=== PATIENT | male | born 1945 | race Caucasian/White ===

== ENCOUNTER 2017-04-07 08:12 | Inpatient (IN) | payer BC, OTHER ==
--- NOTE | 2017-03-30 11:01 | HP ---
DATE OF ADMISSION: 04/07/2017 DATE OF SURGERY: 04/07/2017 DATE OF DICTATION: 02/04/2017 REASON FOR ADMISSION: Large chronically incarcerated complex ventral incisional hernia. BRIEF HISTORY: This is a 71-year-old gentleman who in 2012 underwent a laparoscopic with conversion to an open sigmoid colectomy with an end-to-end anastomosis with a 29 EEA stapler. This was performed at [facility] by Dr. Richards. Following that operation, the patient developed a large incisional hernia. He was evaluated a year to a year and a half ago for this hernia regarding repair by Dr. Lucas, and it was thought not to repair it at that time. He now presents to my office with complains of having progressive pain, episodic pain, in the right lower quadrant of the abdomen where the hernia is. He has had no bouts of nausea or vomiting or change in bowel habits. PAST MEDICAL HISTORY: Patient has as mentioned above. He has a history of peptic ulcer disease, gallbladder disease, heart disease, coronary artery disease, hypertension, hypercholesterolemia, history of skin cancer. He has depression, anxiety disorder. He has difficulty with healing wounds. He has issues with scar formation. He has eye disease and arthritis. PAST SURGICAL HISTORY: As mentioned above. He has had an umbilical hernia repair in the past with mesh. ALLERGIES: None. MEDICATION: Patient takes chronic Percocet 2 pills a day, he takes Ramipril, clonazepam, Lovaza. SOCIAL HISTORY: He does not smoke, nor drink. PHYSICAL EXAMINATION: Lungs: Clear. Heart: Regular rhythm. Abdomen: Obese. 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 He has a large chronically incarcerated ventral hernia below the umbilicus extending to his pelvis and mostly offset to the patients right lower quadrant of the abdomen. The hernia is nontender on exam, but not reducible. He has defect noted at the level of the umbilicus as well. IMPRESSION/PLAN: Chronically incarcerated large incisional ventral hernia. Patient possibly could have loss of domain as well. This is a 71-year-old gentleman becoming more symptomatic from a large ventral incisional hernia. It is chronically incarcerated, and due to the size and nature of this hernia, I suspect he may have some loss of domain. At this point, we discussed the pros and cons of a repair, and clearly the repair of this would not be an easy task and it would require a component separation in an attempt for a retrorectus repair. He may require the component separation just to offload the tension for a repair of a hernia of this magnitude given his possible loss of domain. Patient will be scheduled for bilateral component separation, total abdominal reconstruction, and repair of a large chronically incarcerated ventral incisional hernia with mesh. The indications, alternatives, and complications of this procedure have been discussed at length with this gentleman. He understands and wants to proceed. KATTY DUMONT M.D. [id number] cc: Chase Shepard MD
[2017-04-05 15:31] VITALS: BMI 35.5
[2017-04-07] MEDS ORDERED: TAMSULOSIN HCL 0.4 MG CAP.ER.24H (FP) PO ONE (08:30)
[2017-04-07] MEDS ORDERED: ROPIVACAINE HCL 0.5% 30ML VIAL ONE (08:36)
[2017-04-07] MEDS ORDERED: DEXAMETHASONE SOD PHOSPHATE/PF 10 MG/ML SDV ONE (08:36)
[2017-04-07] MEDS ORDERED: MIDAZOLAM HCL 2 MG/2 ML SINGLE DOSE VIAL ONE ×3 (08:38→10:50)
[2017-04-07] MEDS ORDERED: ceFAZolin SODIUM 1 GM VIAL ONE ×2 (08:40→11:11)
[2017-04-07] MEDS ORDERED: TAMSULOSIN HCL 0.4 MG CAP.ER.24H (FP) ONE (08:40)
[2017-04-07] MEDS ORDERED: fentaNYL CITRATE 250 MCG/5 ML VIAL ONE (10:51)
[2017-04-07] MEDS ORDERED: ROCURONIUM BROMIDE 50 MG/5 ML VIAL ONE ×3 (10:53→12:10)
[2017-04-07] MEDS ORDERED: PROPOFOL 20 ML ONE (10:53)
[2017-04-07] MEDS ORDERED: ceFAZolin SODIUM 1 GM VIAL IVPB ONE (11:00)
[2017-04-07] MEDS ORDERED: ERTAPENEM SODIUM 1 GM VIAL ONE (11:36)
[2017-04-07] MEDS ORDERED: GLYCOPYRROLATE 0.2 MG/1 ML VIAL ONE ×2 (11:37→11:39)
[2017-04-07] MEDS ORDERED: ERTAPENEM SODIUM 1 GM VIAL IVPB ONE (11:38)
[2017-04-07] MEDS ORDERED: BUPIVACAINE HCL/PF 0.25% (2.5MG/ML) 10 ML VIAL ONE (13:07)
[2017-04-07] MEDS ORDERED: DEXAMETHASONE SOD PHOSPHATE 4 MG/1 ML VIAL ONE (13:07)
[2017-04-07] MEDS ORDERED: ONDANSETRON 4 MG/2 ML VIAL IVPUSH PRN ×2 (13:38→15:03)
--- NOTE | 2017-04-07 13:45 | OP ---
Operative Note - Note: Operative Date: 04/07/17 Pre-Operative Diagnosis: complex incisional hernia Operation: repair complex incisional hernia with mesh, utilizing component separation, extensive lysis of adhesions, Findings: densely adhesed small bowel to abd wall, large complex hernia Implants: see operative report Surgeon: Jimenez Carpenter [employer] Team Member: Jackson Blackmon Anesthesiologist/PANTRY ATTENDANT: Eli Velasco MD Specimens Removed: hernia sac Estimated Blood Loss (mls): 30 Drains & Tubes with Location: chrissie subcutaneous Operative Report Dictated: Yes
[2017-04-07] MEDS ORDERED: NEOSTIGMINE METHYLSULFATE 0.5 MG/ML - 10 ML MDV ONE (14:03)
[2017-04-07] MEDS ORDERED: LABETALOL HCL 5 MG/1 ML (100MG/20 ML VIAL) IVPUSH ONE (15:03)
[2017-04-07] MEDS: D5-1/2NS+20 MEQ KCL - 20 MEQ/1,000 ML INFUS.BAG IV SCH (17:10)
[2017-04-07] MEDS: morphine CARPU-JECT 10 MG/1 ML DISP.SYRIN IVPB PRN ×2 (18:30→22:02)
[2017-04-07] MEDS: TERAZOSIN HCL 5 MG CAPSULE PO SCH (22:02)
[2017-04-07] MEDS: RAMIPRIL 5 MG CAPSULE (FP) PO SCH (22:02)
[2017-04-08] MEDS: morphine CARPU-JECT 10 MG/1 ML DISP.SYRIN IVPB PRN ×5 (04:54→20:11)
[2017-04-08] MEDS: D5-1/2NS+20 MEQ KCL - 20 MEQ/1,000 ML INFUS.BAG IV SCH ×2 (06:19→20:15)
[2017-04-08 08:11] LABS: HEMATOCRIT 40.4 % (35.4-49); HEMOGLOBIN 13.2 GM/dL (11.7-16.9); MCH 29.6 pg (25.7-33.7); MCHC 32.6 g/dl (32.0-35.9); MEAN CELL VOLUME 90.9 fl (80-96); PLATELET COUNT 160 K/MM3 (134-434); RBC 4.45 M/mm3 (4.00-5.60); RDW 12.9 % (11.9-15.9); WHITE BLOOD COUNT 12.6 K/mm3 (4.0-10.0)
--- NOTE | 2017-04-08 08:52 | OP ---
DATE OF OPERATION: 04/07/2017 PREOPERATIVE DIAGNOSIS: Chronically incarcerated complex ventral incisional hernia. POSTOPERATIVE DIAGNOSIS: Chronically incarcerated complex ventral incisional hernia. PROCEDURE: Bilateral component separation, repair of complex chronically incarcerated ventral incisional hernia with mesh. SURGEON: Jimenez Dumont MD PROFESSOR OF APOLOGETICS: Clive Rees DO ANESTHESIA: General. Patient also was given a rectus sheath block during the procedure of 20 mL of 0.25% Marcaine with 2 mg of Decadron on either side. ANESTHESIOLOGIST: Eli Velasco MD ESTIMATED BLOOD LOSS: Minimal. SPECIMEN: None. Patient is a 71-year-old gentleman who underwent an attempt at a laparoscopic sigmoid low anterior colectomy but underwent being converted to an open operation. Following the procedure he developed a large incisional hernia that was repaired and now recurred. He was seen by another physician a year ago for this problem and was told that he was not repairable. He now is here today for repair of this hernia. Patient identified and appropriately positioned on the operating room table. After the placement of general anesthesia, the abdomen prepped and draped in the usual sterile fashion using ChloraPrep. A midline incision was made overlying the previous scar and deepened through the subcutaneous tissue. The fascia was divided sharply above the previous scar to the level of the peritoneum. The peritoneum incised and the abdomen was entered above the previous surgical area. The midline fascia was then opened inferiorly slowly and in doing so there were multiple loops of adhesions of small bowel which were off the anterior abdominal wall but just at the level of the umbilicus. The small bowel was densely adherent to the anterior abdominal wall at this level. The bowel was sharply off the abdominal wall with Metzenbaum scissors. On the patient's right side this was fairly easy to do, but on the patient's left side it was very tedious and it turned out that the patient had Ethibond sutures used for closure that were into the serosa portions of the small bowel at this level. The Ethibond sutures were removed. The areas that were deserosalized were sharply with Metzenbaum scissors off the anterior abdominal wall. The bowel eventually freed off the anterior abdominal wall. As the dissection then ensued more inferiorly, we then encountered the large hernia sac and hernia. The hernia was reduced back and the preperitoneal space portion of the hernia was a slider and that was off the sac. The sac then sharply excised off the subcutaneous tissue and off the fascial level and handed off as a specimen as hernia sac.The small bowel was then run from ligament of Treitz to the colon. The areas of deserosalization which had been recognized and oversewn with interrupted 3-0 silk sutures were noted. There were no other areas of deserosalization or enterotomy noted. The peritoneal cavity then irrigated and the irrigant retrieved and noted to be clear. Approximately 40 minutes or so of this operation were used for the extensive lysis of adhesions because the serosa of the small bowel was actually sewn to the anterior abdominal wall and fascial closure. Attention was focused to the patient's right side first. The posterior rectus sheath was divided sharply with the cautery. The retrorectus space developed bluntly and developed out laterally. The perforating vessels were identified and the fascia just medial to the perforating vessels was then subsequently scored. The transversus was sharply divided with the cautery from the obliques and rectus junction. This was done all the way down to the level of the pubis inferiorly and superiorly was taken approximately a good 4 inches above the midline incision that had been opened. Upon completion of the myofascial component separation on the right side, a similar technique was used on the left. The patient's left rectus muscle was retracted to the midclavicular line. The anterior sheath was lifted to the anterior abdominal wall, the muscle identified by dividing the posterior sheath and again the posterior sheath was subsequently developed bluntly and off the rectus. As we approached laterally, the perforating vessels were identified and the transversus was off the junction of the obliques with the rectus with the cautery. Superiorly it was taken approximately 5 inches above the midline incision into the muscular portion of the transversus and inferiorly it was taken down to the level of the pubis. The operative field examined and noted to be hemostatic. The midline transversus was then reapproximated with a running locking 2-0 V-Loc suture. The retrorectus space irrigated with dilute Betadine as well as saline. The operative field noted to be hemostatic. Due to the bowel that had been stitched to the anterior abdominal wall with the Ethibond, I thought it would be unsafe to place permanent mesh in this particular scenario since there is a high risk of infection and mesh infection and therefore a piece of was used on the undersurface, sewn in a hybrid fashion with a piece of Phasix. A large 25 x 30 piece of Phasix was used for the operative repair. The 2 pieces of mesh were sewn together with interrupted 3-0 Vicryl sutures. The mesh was then placed into the retrorectus space and then anchored with the ReliaTack suture and in the midline (patient has an upper midline diastasis) the mesh was split, overlapped and then anchored to the midline fascia with interrupted 0 Prolene sutures. This mesh itself once placed was then irrigated. The operative field noted to be hemostatic. At this point the rectus sheath was then injected on either side with 20 mL of 0.25% Marcaine with 2 mg of Decadron. The midline fascia was then reapproximated with a running No. 1 PDS suture. A 10 flat J-P was placed, brought out through a right lower quadrant separate stab incision, sewn with 3-0 silk suture. The skin reapproximated with valerie followed by Dermabond. At the conclusion of this case, sponge and instrument counts were correct. ATTESTATION: A brief operative note handwritten on the preprinted form. [facility] will be cleared prior to giving any narcotics. JIMENEZ DUMONT M.D. [id number] MTDD
[2017-04-08] MEDS: ASPIRIN 81 MG CHEWABLE TABLETS PO SCH (09:57)
[2017-04-08] MEDS: amLODIPine BESYLATE 5 MG TABLET (FP) PO SCH (09:57)
[2017-04-08] MEDS: PANTOPRAZOLE SODIUM 40 MG VIAL IVPUSH SCH (09:59)
[2017-04-08] MEDS ORDERED: ERTAPENEM SODIUM 1 GM in SODIUM CHLORIDE 100 ML IVPB SCH (10:00)
--- NOTE | 2017-04-08 12:46 | PN ---
Progress Note (short form) - Note Progress Note: surgery pt seen and exmamined. very sore. not wearing binder. oob. no flatus afebrile abd- soft, obese, distended, incision clean, chrissie sero-sanguinous Laboratory Tests 04/08/17 05:22 WBC 12.6 H A/P 1) Pod#1- npo, ivf, chrissie, will remove cardoso 2) morphine, oxycodone 3) prophylaxis- lovenox, protonix, oob, spirometer 4) deserosalization of small bowel- will keep npo until bowel function returns would expect to stay 2 more nights.
--- NOTE | 2017-04-08 17:36 | PN ---
Progress Note, Physician Chief Complaint: Pt. pain controlled, no GA complaints. - Current Medication List Current Medications: Active Medications Acetaminophen (Tylenol -) 650 mg PO Q4H PRN PRN Reason: FEVER Amlodipine Besylate (Norvasc -) 5 mg PO DAILY [facility] Last Admin: 04/08/17 09:57 Dose: 5 mg Aspirin (Asa -) 81 mg PO DAILY [facility] Last Admin: 04/08/17 09:57 Dose: 81 mg Enoxaparin Sodium (Lovenox -) 40 mg SQ DAILY [facility] Fentanyl (Sublimaze Injection -) 50 mcg IVPUSH [id number] PRN PRN Reason: PAIN-PACU ORDER X 4 DOSES ONLY Last Admin: 04/07/17 16:05 Dose: 50 mcg Potassium Chloride/Dextrose/Sod Cl (D5-1/2ns+20 Meq Kcl -) 20 meq in 1,000 mls @ 83 mls/hr IV ASDIR [facility] Last Admin: 04/08/17 06:19 Dose: 83 mls/hr Ertapenem 1 gm/ Sodium (Chloride) 100 mls @ 200 mls/hr IVPB DAILY [facility] PRN Reason: Protocol Stop: 04/09/17 09:59 Last Admin: 04/08/17 09:57 Dose: 200 mls/hr Lactated Ringer's (Lactated Ringers Solution) 1,000 mls @ 75 mls/hr IV ASDIR [facility] Morphine Sulfate (Morphine Injection -) 4 mg IVPB Q3H PRN PRN Reason: PAIN LEVEL 6-10 Last Admin: 04/08/17 16:44 Dose: 4 mg Ondansetron HCl (Zofran Injection) 4 mg IVPUSH Q6H PRN PRN Reason: NAUSEA Ondansetron HCl (Zofran Injection) 4 mg IVPUSH Q6H PRN PRN Reason: NAUSEA AND/OR VOMITING Oxycodone HCl (Roxicodone -) 7.5 mg PO Q4H PRN PRN Reason: PAIN LEVEL 1-5 Pantoprazole Sodium (Protonix Iv) 40 mg IVPUSH DAILY [facility] Last Admin: 04/08/17 09:59 Dose: 40 mg Ramipril (Altace -) 5 mg PO [facility] Last Admin: 04/07/17 22:02 Dose: 5 mg Terazosin HCl (Hytrin -) 5 mg PO [facility] Last Admin: 04/07/17 22:02 Dose: 5 mg - Objective Vital Signs: Vital Signs Temperature 99 F 04/08/17 14:00 Pulse Rate 96 H 04/08/17 14:00 Respiratory Rate 22 04/08/17 14:00 Blood Pressure 140/60 04/08/17 14:00 O2 Sat by Pulse Oximetry (%) 95 04/08/17 09:00 Constitutional: Yes: Well Nourished, No Distress, Calm Musculoskeletal: Yes: WNL Neurological: Yes: WNL, Alert, Oriented ...Motor Strength: WNL Labs: CBC, BMP 04/08/17 05:22 Assessment/Plan POD#1 s/p abdominal wall reconstruction under GA. Doing well. D/C from anesthesia care.
[2017-04-08] MEDS: RAMIPRIL 5 MG CAPSULE (FP) PO SCH (22:04)
[2017-04-08] MEDS: TERAZOSIN HCL 5 MG CAPSULE PO SCH (22:05)
[2017-04-09] MEDS: morphine CARPU-JECT 10 MG/1 ML DISP.SYRIN IVPB PRN (00:04)
[2017-04-09] MEDS: oxyCODONE HCL 5 MG TABLET PO PRN ×4 (04:02→21:53)
[2017-04-09] MEDS: ACETAMINOPHEN 325 MG TABLET (FP) PO PRN (04:02)
[2017-04-09] MEDS ORDERED: BENZOCAINE/MENTH/CETYLPYRD CL 1 EACH LOZENGE MM PRN (06:12)
[2017-04-09] MEDS ORDERED: ALBUTEROL SO4 0.083% IH SOL 2.5 MG/3 ML VIAL.NEB. NEB ONE (06:56)
[2017-04-09] MEDS: ALBUTEROL SO4 0.083% IH SOL 2.5 MG/3 ML VIAL.NEB. NEB PRN (07:04)
[2017-04-09 07:16] LABS: BASO % 0.3 % (0-2.0); EOS % 1.2 % (0-4.5); LYMPH % 10.9 % (8-40); MCH 29.5 pg (25.7-33.7); MCHC 32.5 g/dl (32.0-35.9); MEAN CELL VOLUME 90.9 fl (80-96); MEAN PLT VOLUME 9.6 fl (7.5-11.1); MONO % 8.7 % (3.8-10.2); NEUT % 78.9 % (42.8-82.8); PLATELET COUNT 157 K/MM3 (134-434); RDW 12.5 % (11.9-15.9); WHITE BLOOD COUNT 13.9 K/mm3 (4.0-10.0)
[2017-04-09] MEDS: amLODIPine BESYLATE 5 MG TABLET (FP) PO SCH (10:12)
[2017-04-09] MEDS: ASPIRIN 81 MG CHEWABLE TABLETS PO SCH (10:12)
[2017-04-09] MEDS: D5-1/2NS+20 MEQ KCL - 20 MEQ/1,000 ML INFUS.BAG IV SCH ×2 (10:12→21:43)
[2017-04-09] MEDS: PANTOPRAZOLE SODIUM 40 MG VIAL IVPUSH SCH (10:12)
--- NOTE | 2017-04-09 13:55 | PN ---
Progress Note (short form) - Note Progress Note: surgery pt seen and exmamined. feels better today. ambulated twice. was coughing last night. 1000 on spirometer. voiding afebrile abd- soft, obese, distended, incision clean, chrissie sero-sanguinous, improved tenderness Laboratory Tests 04/09/17 07:00 WBC 13.9 H A/P 1) Pod#2- npo, ivf, chrissie, 2) morphine, oxycodone 3) prophylaxis- lovenox, protonix, oob, spirometer 4) deserosalization of small bowel- will keep npo until bowel function returns would expect to stay 2-3 more nights.
--- NOTE | 2017-04-09 15:47 | PATH ---
Surgical Pathology Report Patient Name: KRISTINA WHEAT Med. Rec. #: [id number] /Age/Gender: 1945 (Age: 71) / M Account: [id number] Location: [address] [place] [address]/[facility] Taken: 04/07/2017 Received: 04/08/2017 Reported: 04/09/2017 Physicians: Jimenez Carpenter Specimen(s) Received HERNIA SAC Clinical History Complex incarcerated ventral hernia Final Diagnosis SOFT TISSUE, ABDOMINAL WALL, EXCISION: FIBROMEMBRANOUS TISSUE WITH MESOTHELIAL LINING CONSISTENT WITH HERNIA SAC. Electronically Signed Tushar Verdin M.D. Gross Description Received in formalin labeled "hernia sac," is an 11.0 x 4.5 x 1.5 cm irregular portion of trujillo landers fibromembranous tissue with attached fat. Auriculotherapist sections are submitted in one cassette. /04/08/2017 saudi04/08/2017
[2017-04-09] MEDS ORDERED: ENOXAPARIN NA (PORCINE) 40 MG/0.4 ML DISP.SYRIN SQ ONE (21:15)
[2017-04-09] MEDS: TERAZOSIN HCL 5 MG CAPSULE PO SCH (21:43)
[2017-04-09] MEDS: RAMIPRIL 5 MG CAPSULE (FP) PO SCH (21:43)
[2017-04-10] MEDS: oxyCODONE HCL 5 MG TABLET PO PRN (06:58)
[2017-04-10 08:58] LABS: BASO % 0.2 % (0-2.0); EOS % 4.1 % (0-4.5); HEMATOCRIT 35.6 % (35.4-49); HEMOGLOBIN 11.7 GM/dL (11.7-16.9); MCH 30.1 pg (25.7-33.7); MCHC 32.9 g/dl (32.0-35.9); MEAN CELL VOLUME 91.4 fl (80-96); MEAN PLT VOLUME 9.5 fl (7.5-11.1); MONO % 9.9 % (3.8-10.2); NEUT % 65.8 % (42.8-82.8); PLATELET COUNT 152 K/MM3 (134-434); RBC 3.89 M/mm3 (4.00-5.60); RDW 12.7 % (11.9-15.9); WHITE BLOOD COUNT 11.6 K/mm3 (4.0-10.0)
[2017-04-10 09:24] LABS: ALBUMIN 2.8 g/dl (3.4-5.0); ANION GAP 8 (8-16); BLOOD UREA NITROGEN 21 mg/dL (7-18); CALCIUM 7.7 mg/dL (8.5-10.1); CHLORIDE 106 mmol/L (98-107); CO2 25 mmol/L (21-32); CREATININE 1.2 mg/dL (0.7-1.3); GLUCOSE,RANDOM 159 mg/dL (74-106); MAGNESIUM 2.2 mg/dL (1.8-2.4); POTASSIUM 4.8 mmol/L (3.5-5.1); SGOT/AST 32 U/L (15-37); SGPT/ALT 37 U/L (12-78); SODIUM 139 mmol/L (136-145)
[2017-04-10 09:26] LABS: ALK PHOS 43 U/L (45-117); BILIRUBIN,TOTAL 1.3 mg/dL (0.2-1.0); TOT PROT 5.9 g/dl (6.4-8.2)
[2017-04-10] MEDS: PANTOPRAZOLE SODIUM 40 MG VIAL IVPUSH SCH (09:39)
[2017-04-10] MEDS: ASPIRIN 81 MG CHEWABLE TABLETS PO SCH (09:40)
[2017-04-10] MEDS: amLODIPine BESYLATE 5 MG TABLET (FP) PO SCH (09:40)
[2017-04-10] MEDS: D5-1/2NS+20 MEQ KCL - 20 MEQ/1,000 ML INFUS.BAG IV SCH ×2 (10:10→18:44)
[2017-04-10] MEDS: ENOXAPARIN NA (PORCINE) 40 MG/0.4 ML DISP.SYRIN SQ SCH (10:10)
[2017-04-10] MEDS: RAMIPRIL 5 MG CAPSULE (FP) PO SCH (21:53)
[2017-04-10] MEDS: TERAZOSIN HCL 5 MG CAPSULE PO SCH (21:53)
[2017-04-11] MEDS ORDERED: guaiFENesin 200 MG/10 ML 10 ML UNIT-DOSE CUPS PO ONE (01:28)
[2017-04-11] MEDS: D5-1/2NS+20 MEQ KCL - 20 MEQ/1,000 ML INFUS.BAG IV SCH ×2 (02:35→13:40)
[2017-04-11] MEDS: ALBUTEROL SO4 0.083% IH SOL 2.5 MG/3 ML VIAL.NEB. NEB PRN ×4 (03:28→20:50)
[2017-04-11] MEDS ORDERED: PT OWN MED DRAWER 7, Y5N ONE (06:49)
[2017-04-11] MEDS: PANTOPRAZOLE SODIUM 40 MG VIAL IVPUSH SCH (10:15)
[2017-04-11] MEDS: amLODIPine BESYLATE 5 MG TABLET (FP) PO SCH (10:15)
[2017-04-11] MEDS: ENOXAPARIN NA (PORCINE) 40 MG/0.4 ML DISP.SYRIN SQ SCH (10:15)
[2017-04-11] MEDS: ASPIRIN 81 MG CHEWABLE TABLETS PO SCH (10:15)
[2017-04-11] MEDS: ALPRAZolam 0.25 MG TABLET PO PRN ×2 (10:15→17:18)
[2017-04-11] MEDS: ACETAMINOPHEN 325 MG TABLET (FP) PO PRN (17:16)
[2017-04-11] MEDS: TERAZOSIN HCL 5 MG CAPSULE PO SCH (21:40)
[2017-04-11] MEDS: RAMIPRIL 5 MG CAPSULE (FP) PO SCH (21:43)
[2017-04-12] MEDS: ALBUTEROL SO4 0.083% IH SOL 2.5 MG/3 ML VIAL.NEB. NEB PRN ×2 (05:51→21:45)
[2017-04-12] MEDS: amLODIPine BESYLATE 5 MG TABLET (FP) PO SCH (10:02)
[2017-04-12] MEDS: ASPIRIN 81 MG CHEWABLE TABLETS PO SCH (10:02)
[2017-04-12] MEDS: ENOXAPARIN NA (PORCINE) 40 MG/0.4 ML DISP.SYRIN SQ SCH (10:02)
[2017-04-12] MEDS: PANTOPRAZOLE SODIUM 40 MG VIAL IVPUSH SCH (10:03)
[2017-04-12 13:02] LABS: BASO % 0.4 % (0-2.0); EOS % 2.4 % (0-4.5); HEMATOCRIT 33.4 % (35.4-49); HEMOGLOBIN 11.1 GM/dL (11.7-16.9); LYMPH % 15.4 % (8-40); MCH 29.9 pg (25.7-33.7); MCHC 33.2 g/dl (32.0-35.9); MEAN PLT VOLUME 8.8 fl (7.5-11.1); MONO % 16.7 % (3.8-10.2); NEUT % 65.1 % (42.8-82.8); PLATELET COUNT 192 K/MM3 (134-434); RBC 3.71 M/mm3 (4.00-5.60); RDW 12.6 % (11.9-15.9); WHITE BLOOD COUNT 6.5 K/mm3 (4.0-10.0)
[2017-04-12] MEDS: D5-1/2NS+20 MEQ KCL - 20 MEQ/1,000 ML INFUS.BAG IV SCH (13:06)
--- NOTE | 2017-04-12 16:21 | PN ---
Progress Note (short form) - Note Progress Note: surgery pt seen and examined. feels well. flatus, small bm. no nausea. very hungry. afebrile abd- soft, obese, distended, incision clean, chrissie sero-sanguinous, nt Laboratory Tests 04/12/17 12:48 WBC 6.5 D A/P 1) Pod#5- full liquids, stop ivf, cont chrissie, 2) morphine, oxycodone 3) prophylaxis- lovenox, protonix, oob, spirometer 4) deserosalization of small bowel- trial of liquids. poss d/c tomorrow would expect to stay 1-2 more nights.
[2017-04-12] MEDS: RAMIPRIL 5 MG CAPSULE (FP) PO SCH (21:06)
[2017-04-12] MEDS: TERAZOSIN HCL 5 MG CAPSULE PO SCH (21:06)
[2017-04-13] MEDS: LACTATED RINGERS SOLUTION 1,000 ML IV SCH ×2 (06:20→16:01)
[2017-04-13 08:44] LABS: BASO % 0.5 % (0-2.0); EOS % 3.5 % (0-4.5); HEMATOCRIT 34.4 % (35.4-49); HEMOGLOBIN 11.5 GM/dL (11.7-16.9); LYMPH % 23.9 % (8-40); MCH 29.7 pg (25.7-33.7); MCHC 33.3 g/dl (32.0-35.9); MEAN CELL VOLUME 89.2 fl (80-96); MEAN PLT VOLUME 8.7 fl (7.5-11.1); MONO % 15.8 % (3.8-10.2); NEUT % 56.3 % (42.8-82.8); PLATELET COUNT 200 K/MM3 (134-434); RBC 3.86 M/mm3 (4.00-5.60); RDW 12.5 % (11.9-15.9); WHITE BLOOD COUNT 6.6 K/mm3 (4.0-10.0)
[2017-04-13] MEDS: ASPIRIN 81 MG CHEWABLE TABLETS PO SCH (09:47)
[2017-04-13] MEDS: amLODIPine BESYLATE 5 MG TABLET (FP) PO SCH (09:47)
[2017-04-13] MEDS: ENOXAPARIN NA (PORCINE) 40 MG/0.4 ML DISP.SYRIN SQ SCH (09:47)
[2017-04-13] MEDS: PANTOPRAZOLE SODIUM 40 MG VIAL IVPUSH SCH (09:51)
[2017-04-13] MEDS: ALBUTEROL SO4 0.083% IH SOL 2.5 MG/3 ML VIAL.NEB. NEB PRN (09:56)
[2017-04-13 14:52] VITALS: BP 109/58; PULSE 85; TEMP 98.6
== END 2017-04-13 16:23 | disposition home or self-care (01) | DRG 355 ==
LOC: JASUSAT 08:12 → JSAMEDAYSX 13:38 → J6S 17:30
PROVIDERS: ADMIT Surgery; ATTEND Surgery
PROC: 0WUF0JZ Supplement Abdominal Wall with Synthetic Substitute, Open Approach (ICD-10-PCS; principal; 2017-04-07 10:00)
DX: K43.0 Incisional hernia with obstruction, without gangrene (principal); I25.10 Atherosclerotic heart disease of native coronary artery without angina pectoris; I10 Essential (primary) hypertension; E66.8 Other obesity; Z68.35 Body mass index [BMI] 35.0-35.9, adult; E78.00 Pure hypercholesterolemia, unspecified; F41.8 Other specified anxiety disorders; K82.8 Other specified diseases of gallbladder; M13.88 Other specified arthritis, other site; Z87.11 Personal history of peptic ulcer disease; Z95.5 Presence of coronary angioplasty implant and graft; Z85.828 Personal history of other malignant neoplasm of skin
CPT/HCPCS: 36415; 80048; 80053; 83735; 84100; 85025; 85027; 88302-TC; 94640; 94760; 97116-GP; 97161-GP